=== PATIENT | female | born 1940 | race Caucasian/White ===

== ENCOUNTER 2016-12-08 10:01 | Emergency (ER) | payer MEDICARE, BC ==
[~2016-12-08] VITALS: Ht 157.5 cm; Wt 65.9 kg
[2016-12-08 10:04] VITALS: TEMP 98.1
[2016-12-08 15:00] VITALS: BP 131/60; PULSE 87
== END 2016-12-08 15:30 | disposition home or self-care (01) ==
LOC: COL.ER 10:01
DX: S52.572A Other intraarticular fracture of lower end of left radius, initial encounter for closed fracture (principal); S52.692A Other fracture of lower end of left ulna, initial encounter for closed fracture; W07.XXXA Fall from chair, initial encounter; Y92.009 Unspecified place in unspecified non-institutional (private) residence as the place of occurrence of the external cause
CPT/HCPCS: J1170; J2405; J2704; J3010; J7030; J7120

== ENCOUNTER 2016-12-13 09:18 | Day surgery (SDC) | payer MEDICARE, BC ==
[~2016-12-13] VITALS: Ht 157.5 cm; Wt 65.8 kg
[2016-12-13] MEDS ORDERED: NORCO 325 MG-51 TAB PO (10:34)
[2016-12-13 10:37] VITALS: BP 119/72; PULSE 100; TEMP 98.1
[2016-12-13 13:25] VITALS: BP 118/53; PULSE 87; TEMP 97.4
[2016-12-13 13:40] VITALS: BP 101/64; PULSE 89
[2016-12-13 13:55] VITALS: BP 119/60; PULSE 68
[2016-12-13 14:10] VITALS: BP 120/53; PULSE 70
[2016-12-13 14:40] VITALS: BP 137/66; PULSE 83
== END 2016-12-13 15:50 | disposition home or self-care (01) ==
LOC: SDCO 09:18
DX: S52.572A Other intraarticular fracture of lower end of left radius, initial encounter for closed fracture (principal); W07.XXXA Fall from chair, initial encounter; Y92.000 Kitchen of unspecified non-institutional (private) residence as the place of occurrence of the external cause
CPT/HCPCS: C1713; J0690; J2250; J2704; J3010; J7120